=== PATIENT | male | born 1995 | race Caucasian/White ===

== ENCOUNTER 2021-10-03 01:41 | Emergency (ER) | payer SELFPAY ==
[~2021-10-03] VITALS: Ht 190.5 cm; Wt 81.6 kg
[2021-10-03 01:53] VITALS: BP 135/86
== END 2021-10-03 03:39 | disposition left against medical advice (07) ==
LOC: ER 01:41
DX: N50.819 Testicular pain, unspecified (principal); Z53.21 Procedure and treatment not carried out due to patient leaving prior to being seen by health care provider